=== PATIENT | male | born 1970 | race Caucasian/White ===

== ENCOUNTER → 2017-08-21 | Outpatient (CLI) | payer OTHER ==
--- NOTE | 2017-08-21 15:41 | XR ---
EXAMINATION TYPE: XR lumbar spine 2 or 3V DATE OF EXAM: 08/21/2017 COMPARISON: NONE HISTORY: Chronic low back pain TECHNIQUE: Three-view lumbar spine FINDINGS: Disc space narrowing is present posteriorly L5-S1 mildly diffusely through L3-4. Spondylosi s is present. Vertebral body heights are preserved. Alignment appears normal. IMPRESSION: Mild degenerative disc changes
== END | disposition home or self-care (01) ==
LOC: RADXRYALE 15:18
PROVIDERS: ATTEND Internal Medicine
DX: M51.36 Other intervertebral disc degeneration, lumbar region (principal)
CPT/HCPCS: 72100

== ENCOUNTER → 2017-09-13 | Outpatient (CLI) | payer OTHER ==
--- NOTE | 2017-09-13 15:41 | MR ---
EXAMINATION TYPE: MR lumbar spine wo con DATE OF EXAM: 09/13/2017 COMPARISON: NONE HISTORY: LBP, rt side x 1 year; no trauma/surgery TECHNIQUE: T1 and T2 axial and sagittal images of the lumbar spine are submitted. FINDINGS: There is no abnormal signal seen within the visualized spinal cord or paraspinal soft tissu es. At L1-2 there is no disc herniation or canal stenosis. No degenerative disc disease. Mild hypertrophi c change of the facets. Neural foramina patent. At L2-3 there is disc desiccation and degenerative disc disease with circumferential disc bulging. Th ere is facet arthropathy. Mild bilateral foraminal encroachment. No Canal stenosis. At L3-4 there is 2 mm retrolisthesis. There is facet arthropathy and ligamentum flavum hypertrophy wi th circumferential disc bulging. There is mild central stenosis and mild to moderate bilateral forami nal encroachment. At L4-5 there is more advanced facet arthropathy with circumferential disc bulging greater paracentra lly to the left. Moderate left-sided foraminal encroachment and mild right-sided foraminal encroachme nt. Mild central stenosis. At L5-S1 there is severe degenerative disc disease with facet arthropathy and central disc bulging or tiny protrusion. No Canal stenosis. Mild effacement of thecal sac. Mild bilateral foraminal encroach ment. IMPRESSION: 1. Multilevel degenerative disc disease and facet arthropathy with hypertrophic changes in combinatio n with disc bulging resulting in multilevel canal stenosis as discussed above. 2. Multilevel foraminal encroachment.
== END ==
LOC: RADMRIMAIN 13:52
PROVIDERS: ATTEND Internal Medicine
DX: M48.061 Spinal stenosis, lumbar region without neurogenic claudication (principal); M51.27 Other intervertebral disc displacement, lumbosacral region; M43.16 Spondylolisthesis, lumbar region; M51.37 Other intervertebral disc degeneration, lumbosacral region; M46.87 Other specified inflammatory spondylopathies, lumbosacral region
CPT/HCPCS: 72148